=== PATIENT | female | born 1970 | race Caucasian/White ===

== ENCOUNTER 2017-09-16 14:44 | Emergency (ER) | payer OTHER ==
[2017-09-16] MEDS: ONDANSETRON (ODT) 4 MG TAB ODT (16:37)
[2017-09-16 16:48] LABS: ADD MAN DIFF? NO
[2017-09-16 16:49] LABS: URINE BLOOD (Dip) POC 3+ (NEGATIVE); URINE GLUCOSE (Dip) POC Negative (NEGATIVE); URINE KETONES (Dip) POC 4+ (NEGATIVE); URINE LEUKOCYTE EST (Dip) POC Negative (NEGATIVE); URINE NITRITE (Dip) POC Negative (NEGATIVE); URINE TOTAL PROTEIN POC 1+ (NEGATIVE)
[2017-09-16 16:51] LABS: WHITE BLOOD COUNT 10.8 10^3/ul (4.8-10.8)
[2017-09-16 16:51] LABS: BASOPHIL # 0.1 10^3/ul (0.0-0.1); BASOPHILS % 0.8 % (0.0-2.0); EOSINOPHILS # 0.1 10^3/ul (0.0-0.5); EOSINOPHILS % 0.8 % (0.0-7.0); HEMATOCRIT 43.4 % (37.0-47.0); HEMOGLOBIN 15.3 g/dl (12.0-16.0); LYMPHOCYTES # 2.2 10^3/ul (0.8-2.9); MEAN CORPUSCULAR HGB CONC 35.3 g/dl (32.0-37.0); MEAN CORPUSCULAR VOLUME 82.4 fl (82.0-101.0); MEAN PLATELET VOLUME 10.5 fl (7.4-10.4); MONOCYTE # 1.3 10^3/ul (0.3-0.9); NEUTROPHIL # 7.2 10^3/ul (1.6-7.5); NEUTROPHILS % 66.1 % (39.0-77.0); PLATELET COUNT 341 10^3/UL (140-415); RED BLOOD COUNT 5.27 10^6/ul (4.20-5.40); RED CELL DISTRIBUTION WIDTH 14.2 % (11.5-14.5)
[2017-09-16 17:11] LABS: ALANINE AMINOTRANSFERASE 39 IU/L (13-69); ALBUMIN 4.5 g/dl (3.3-4.9); ALBUMIN/GLOBULIN RATIO 1.28; ALKALINE PHOSPHATASE 106 IU/L (42-121); ANION GAP 25 (8-16); ASPARTATE AMINO TRANSFERASE 31 IU/L (15-46); BILIRUBIN,INDIRECT 0.4 mg/dl (0-1.1); BILIRUBIN,TOTAL 0.4 mg/dl (0.2-1.3); BLOOD UREA NITROGEN 11 mg/dl (7-20); CALCIUM 9.7 mg/dl (8.4-10.2); CARBON DIOXIDE 20 mmol/L (21-31); CHLORIDE 91 mmol/L (97-110); CREATININE 1.25 mg/dl (0.44-1.00); GLUCOSE 95 mg/dl (70-220); LIPASE 83 U/L (23-300); SODIUM 133 mmol/L (135-144)
[2017-09-16 17:17] LABS: POTASSIUM 2.7 mmol/L (3.5-5.1)
[2017-09-16] MEDS: POTASSIUM CHLORIDE (SR) 20 MEQ TAB PO ×2 (17:30→17:31)
[2017-09-16] MEDS: SOD CHLORIDE 0.9% 1,000 ML IV (17:31)
== END 2017-09-16 18:00 | disposition home or self-care (01) ==
LOC: FTE 14:44
DX: R11.0 Nausea (principal); K59.00 Constipation, unspecified; E87.6 Hypokalemia; I10 Essential (primary) hypertension; F17.210 Nicotine dependence, cigarettes, uncomplicated
CPT/HCPCS: 36415; 80053; 81003; 83690; 85025; 93005; 99284-25

== ENCOUNTER 2017-09-23 09:55 | Inpatient (IN) | payer OTHER ==
[2017-09-23 12:56] LABS: ANION GAP 21 (8-16); BLOOD UREA NITROGEN 20 mg/dl (7-20); CALCIUM 10.3 mg/dl (8.4-10.2); CARBON DIOXIDE 25 mmol/L (21-31); CHLORIDE 91 mmol/L (97-110); CREATININE 2.01 mg/dl (0.44-1.00); GLUCOSE 104 mg/dl (70-220); SODIUM 134 mmol/L (135-144)
[2017-09-23 13:02] LABS: POTASSIUM 2.9 mmol/L (3.5-5.1)
[2017-09-23] MEDS ORDERED: ONDANSETRON 4 MG INJ IV (14:00)
[2017-09-23] MEDS ORDERED: ACETAMINOPHEN 325 MG TAB PO ×2 (14:00→17:00)
[2017-09-23] MEDS: POTASSIUM CHLORIDE (SR) 20 MEQ TAB PO ×2 (15:12→19:03)
[2017-09-23] MEDS: ONDANSETRON 4 MG INJ IV (19:03)
[2017-09-23] MEDS: POTASSIUM CHLORIDE 30 MEQ in DEXTROSE 5%-0.9% NACL 1,000 ML IV (19:03)
[2017-09-23 19:46] LABS: ADD UMIC YES; UR ASCORBIC ACID NEGATIVE (NEGATIVE); UR BACTERIA FEW /HPF (NONE SEEN); UR BILIRUBIN (Dip) NEGATIVE (NEGATIVE); UR BLOOD (Dip) 2+ mg/dL (NEGATIVE); UR CLARITY CLEAR (CLEAR); UR COLOR STRAW (YELLOW); UR GLUCOSE (Dip) NEGATIVE (NEGATIVE); UR KETONES (Dip) TRACE mg/dL (NEGATIVE); UR LEUKOCYTE ESTERASE (Dip) NEGATIVE Leu/ul (NEGATIVE); UR NITRITE (Dip) NEGATIVE (NEGATIVE); UR RBC 1 /HPF (0-5); UR SPECIFIC GRAVITY (Dip) 1.003 (1.003-1.030); UR TOTAL PROTEIN (Dip) NEGATIVE (NEGATIVE); UR UROBILINOGEN (Dip) NEGATIVE (NEGATIVE); UR WBC 1 /HPF (0-5)
[2017-09-24] MEDS ORDERED: PANTOPRAZOLE 40 MG INJ (03:59)
[2017-09-24] MEDS: ONDANSETRON 4 MG INJ IV (05:53)
[2017-09-24] MEDS: PANTOPRAZOLE 40 MG INJ IV (05:53)
[2017-09-24 05:58] LABS: WHITE BLOOD COUNT 7.4 10^3/ul (4.8-10.8)
[2017-09-24 05:58] LABS: ADD MAN DIFF? NO; BASOPHIL # 0.1 10^3/ul (0.0-0.1); BASOPHILS % 1.1 % (0.0-2.0); EOSINOPHILS # 0.2 10^3/ul (0.0-0.5); EOSINOPHILS % 3.1 % (0.0-7.0); HEMATOCRIT 36.6 % (37.0-47.0); LYMPHOCYTES # 2.6 10^3/ul (0.8-2.9); LYMPHOCYTES % 34.5 % (15.0-51.0); MEAN CORPUSCULAR HEMOGLOBIN 29.4 pg (29.0-33.0); MEAN CORPUSCULAR HGB CONC 35.5 g/dl (32.0-37.0); MEAN CORPUSCULAR VOLUME 82.8 fl (82.0-101.0); MEAN PLATELET VOLUME 10.8 fl (7.4-10.4); MONOCYTE # 1.2 10^3/ul (0.3-0.9); MONOCYTES % 16.1 % (0.0-11.0); NEUTROPHIL # 3.3 10^3/ul (1.6-7.5); NEUTROPHILS % 44.8 % (39.0-77.0); PLATELET COUNT 282 10^3/UL (140-415); RED BLOOD COUNT 4.42 10^6/ul (4.20-5.40); RED CELL DISTRIBUTION WIDTH 14.4 % (11.5-14.5)
[2017-09-24 06:34] LABS: B-TYPE NATRIURETIC PEPTIDE 49 PG/ML (0-125)
[2017-09-24] MEDS: POTASSIUM CHLORIDE 30 MEQ in DEXTROSE 5%-0.9% NACL 1,000 ML IV ×2 (10:54→20:04)
[2017-09-24 15:50] LABS: ADD UMIC YES; UR ASCORBIC ACID NEGATIVE (NEGATIVE); UR BILIRUBIN (Dip) NEGATIVE (NEGATIVE); UR BLOOD (Dip) 1+ mg/dL (NEGATIVE); UR CLARITY CLEAR (CLEAR); UR COLOR STRAW (YELLOW); UR GLUCOSE (Dip) NEGATIVE (NEGATIVE); UR KETONES (Dip) NEGATIVE (NEGATIVE); UR LEUKOCYTE ESTERASE (Dip) NEGATIVE Leu/ul (NEGATIVE); UR NITRITE (Dip) NEGATIVE (NEGATIVE); UR RBC 0 /HPF (0-5); UR SPECIFIC GRAVITY (Dip) 1.002 (1.003-1.030); UR TOTAL PROTEIN (Dip) NEGATIVE (NEGATIVE); UR UROBILINOGEN (Dip) NEGATIVE (NEGATIVE); UR WBC 0 /HPF (0-5)
[2017-09-24 17:54] LABS: ANION GAP 15 (8-16); BLOOD UREA NITROGEN 10 mg/dl (7-20); CALCIUM 9.4 mg/dl (8.4-10.2); CARBON DIOXIDE 23 mmol/L (21-31); CHLORIDE 96 mmol/L (97-110); CREATININE 1.29 mg/dl (0.44-1.00); GLUCOSE 102 mg/dl (70-220); SODIUM 130 mmol/L (135-144)
[2017-09-24 17:57] LABS: MAGNESIUM 1.6 mg/dl (1.7-2.5)
[2017-09-25] MEDS: VITAMIN A & D 5 GM OINT PACKET TOP (00:37)
[2017-09-25] MEDS: MAGNESIUM SULFATE 2 GM/50 ML 50 ML IVPB (01:29)
[2017-09-25] MEDS: POTASSIUM CHLORIDE 30 MEQ in DEXTROSE 5%-0.9% NACL 1,000 ML IV ×2 (01:29→09:36)
[2017-09-25] MEDS: PANTOPRAZOLE 40 MG INJ IV (05:39)
[2017-09-25 11:05] LABS: ANION GAP 13 (8-16); BLOOD UREA NITROGEN 6 mg/dl (7-20); CALCIUM 9.5 mg/dl (8.4-10.2); CARBON DIOXIDE 23 mmol/L (21-31); CHLORIDE 104 mmol/L (97-110); CREATININE 1.01 mg/dl (0.44-1.00); GLUCOSE 114 mg/dl (70-220); MAGNESIUM 2.4 mg/dl (1.7-2.5); POTASSIUM 3.8 mmol/L (3.5-5.1); SODIUM 136 mmol/L (135-144)
== END 2017-09-25 15:12 | disposition home or self-care (01) | DRG 684 ==
LOC: PP2 09-24 22:46 → FTE 09:55 → MS3 13:57
DX: N17.9 Acute kidney failure, unspecified (principal); I10 Essential (primary) hypertension; E87.6 Hypokalemia; R11.0 Nausea; R63.4 Abnormal weight loss; Z68.27 Body mass index [BMI] 27.0-27.9, adult; F17.210 Nicotine dependence, cigarettes, uncomplicated
CPT/HCPCS: 36415; 76775; 80048; 81001; 83735; 83880; 85025; 87086; 99285-25